=== PATIENT | male | born 1995 ===

== ENCOUNTER 2018-12-24 18:10 | Day surgery (SDC) | payer BC ==
[2018-12-24] MEDS ORDERED: FENTANYL PF 100MCG/2ML VIAL IV ONE (18:11)
[2018-12-24] MEDS ORDERED: CEFAZOLIN 1 Gram 1 GM/50 ML BAG IVPB ONE (18:11)
[2018-12-24] MEDS ORDERED: LIDOCAINE 2% MDV (20MG/ML) 20ML VIAL IV ONE (18:11)
[2018-12-24] MEDS ORDERED: ONDANSETRON HCL IV 4 MG/2 ML VIAL IVP ONE (18:11)
[2018-12-24] MEDS ORDERED: SEVOFLURANE 250 ML INH ONE (18:11)
[2018-12-24] MEDS ORDERED: MIDAZOLAM HCL 2MG/2ML VIAL IV ONE (18:11)
[2018-12-24] MEDS ORDERED: PROPOFOL 10 MG/ML VIAL IV ONE (18:11)
[2018-12-24] MEDS ORDERED: DEXAMETHASONE 4 MG/ML 1ML VIAL IVP ONE (18:11)
[2018-12-24] MEDS ORDERED: BUPIVACAINE 0.5% W/EPI MPF 30 ML VIAL SQ ONE (20:40)
[2018-12-24] MEDS ORDERED: MORPHINE SULFATE 10 MG/ML VIAL IVP PRN (21:47)
[2018-12-24] MEDS ORDERED: HYDROCODONE/APAP 5/325MG TABLET PO PRN ×2 (21:57→21:59)
--- NOTE | 2018-12-26 08:30 | Operative Note ---
DATE OF SURGERY: 12/24/2018 PREOPERATIVE DIAGNOSIS: Expanding hematoma, left breast. POSTOPERATIVE DIAGNOSIS: Expanding hematoma, left breast. OPERATION: I&D hematoma left breast. Surgeon: Samuel Macdonald MD Anesthesia: General. Estimated Blood Loss: 250 mL DRAINS: A 15 round Emmanuel. SPECIMENS: None. COMPLICATIONS: None. Indication: The patient is a very nice 23-year-old who had bilateral subcutaneous mastectomies earlier today. He called reporting feeling a pop, some heat, and increasing pain of his left chest and breast. He was evaluated in the office and at that point had a very tight large hematoma which was compromising nipple circulation. The hematoma was decompressed at the office by taking sutures out around the nipple areolar complex and relieving the pressure off the nipple. He is here for exploration and control of the hematoma. PROCEDURE: The patient was interviewed preoperatively where the plan was reviewed. He was then taken to the operating room to satisfactory general anesthesia. All pressure points well padded and protected. We prepped and draped in the usual sterile manner. We opened his previous incisions and drained a well-organized hematoma. We irrigated until there was no evidence of any residual hematoma or clot. Distal tip of the nipple pedicle was well vascularized. We thoroughly explored the wound. Found a couple small bleeding arteries in the upper axilla which were cauterized and ligated. Then observed the wound for about 10 minutes. When there was no active bleeding, we again irrigated, replaced the drain, and closed the incision using interrupted and subcutaneous 3-0 Monocryl. The nipple areolar with interrupted and subcutaneous 4-0 Monocryl. Sterile dressings were changed and placed on both breasts. Both nipples bleed and were viable postoperatively. He tolerated the procedure well without complication. SAQIB
== END 2018-12-25 00:05 | disposition home or self-care (01) ==
LOC: SUR 18:10 → MEDSURG 18:12 → SUR 12-25 00:05
PROVIDERS: ATTEND Plastic Surgery
DX: L76.32 Postprocedural hematoma of skin and subcutaneous tissue following other procedure (principal); N64.89 Other specified disorders of breast
CPT/HCPCS: 10140; 00400; J2405; J3010; J0690; J2270

== ENCOUNTER 2019-11-09 19:14 | Emergency (ER) | payer BC ==
[2019-11-09] MEDS ORDERED: KETOROLAC 30 MG/ML VIAL IVP ONE (19:25)
--- NOTE | 2019-11-09 19:29 | Emergency Department Record ---
History of Present Illness - General Chief Complaint: Chest Pain Stated Complaint: chest pain Time Seen by Provider: 11/09/19 19:17 Source: Patient Mode of Arrival: Ambulatory Limitations: No limitations - History of Present Illness Initial Comments: 24 yo male presents with chest pain that started two hours prior to arrival while at work. The patient states the pain is bilateral lower chest pain. The pain is sharp in nature. No cough. No shortness of breath. No leg pain or swelling. No fevers. It does hurt to cough. The patient has a surgical history of hysterectomy and bilateral mastectomies. No history of cardiac disease. No history of DVT or PE. MD Complaint: Chest pain -: Hour(s) (2) Onset: Other (During work) Pain Location: Left chest, Right chest Pain Radiation: None Severity: Moderate Quality: Sharp Consistency: Constant Improves With: Nothing Worsens With: Inspiration Context: Other Anginal Symptoms: Other Other Symptoms: Other Treatments Prior to Arrival: None - Related Data Home Medications Medication Instructions Recorded Confirmed Last Taken Fluoxetine HCl 20 mg PO ASDIR 11/09/19 11/09/19 11/09/19 Gabapentin [Neurontin] 100 mg PO BID 11/09/19 11/09/19 11/09/19 Oxcarbazepine [Oxtellar Xr] 600 mg PO BID 11/09/19 11/09/19 11/09/19 Testosterone Cypionate 100 mg IM WEEKLY 11/09/19 11/09/19 11/09/19 [Depo-Testosterone] Allergies Allergy/AdvReac Type Severity Reaction Status Date / Time aspartame AdvReac NAUSEA AND Verified 11/09/19 19:22 VOMITING Review of Systems Constitutional: Denies: Chills, Fever, Malaise, Weakness Eyes: Denies: Eye discharge ENT: Denies: Congestion, Throat pain Respiratory: Denies: Cough, Dyspnea, Hemoptysis, Stridor, Wheezes Cardiovascular: Reports: Chest pain. Denies: Dyspnea on exertion, Edema, Palpitations, Syncope Endocrine: Denies: Fatigue, Polydipsia, Polyuria Gastrointestinal: Denies: Abdominal pain, Diarrhea, Nausea, Vomiting Genitourinary: Denies: Dysuria, Frequency, Hematuria Musculoskeletal: Denies: Arthralgia, Back pain, Myalgia Skin: Denies: Bruising, Change in color, Rash Neurological: Denies: Headache Psychiatric: Denies: Anxiety Hematological/Lymphatic: Denies: Easy bleeding, Easy bruising Past Medical History - SOCIAL HISTORY Smoking Status: Never smoker - RESPIRATORY Hx Asthma: Yes (Seasonal Allergies) - CARDIOVASCULAR Hx Cardio Disorders: No - NEURO Hx Neuro Disorders: No - GI Hx GI Disorders: No - Hx Genitourinary Disorders: No - ENDOCRINE Hx Endocrine Disorders: No - MUSCULOSKELETAL Hx Musculoskeletal Disorders: No - PSYCH Hx Psych Problems: Yes Hx Anxiety: Yes Hx Depression: Yes - HEMATOLOGY/ONCOLOGY Hx Hematology/Oncology Disorders: No Family Medical History Hx Alcohol Use: Father, Mother Hx Cancer: Grandparents Hx Diabetes: Grandparents Physical Exam - General General Appearance: Alert, Oriented x3, Cooperative, No acute distress Limitations: No limitations - Head Head exam: Atraumatic, Normocephalic, Normal inspection - Eye Eye exam: Normal appearance, PERRL. negative: Conjunctival injection, Scleral icterus - ENT ENT exam: Normal exam Ear exam: Normal external inspection Nasal Exam: Normal inspection Mouth exam: Normal external inspection - Neck Neck exam: Normal inspection, Full ROM - Respiratory Respiratory exam: Normal lung sounds bilaterally. negative: Accessory muscle use, Chest wall tenderness, Decreased breath sounds, Prolonged expiratory, Respiratory distress, Rhonchi, Stridor, Wheezes - Cardiovascular Cardiovascular Exam: Regular rate, Normal rhythm, Normal heart sounds. negative: Diastolic murmur, Systolic murmur Peripheral Pulses: 2+: Radial (R), Radial (L) - GI/Abdominal GI/Abdominal exam: Soft. negative: Tenderness - Rectal Rectal exam: Deferred - exam: Deferred - Extremities Extremities exam: Normal inspection. negative: Calf tenderness, Pedal edema, Tenderness - Back Back exam: Denies: CVA tenderness (R), CVA tenderness (L) - Neurological Neurological exam: Alert, Oriented X3 - Psychiatric Psychiatric exam: Normal affect, Normal mood. negative: Agitated, Anxious - Skin Skin exam: Dry, Intact, Normal color, Warm Course - Reevaluation(s) Reevaluation #1: 11/09/19 19:26 EKG #1: 19:18 Rate: 79 Rhythm: normal [place]: normal Intervals: normal ST segments: normal Normal EKG 11/09/19 19:51 The CBC and BMP are normal 11/09/19 19:56 The D-Dimer is negative With a negative D-Dimer and normal vital signs I ordered a CXR. No indication for a CTA at this time. 11/09/19 20:33 The CXR is negative for acute process He is well appearing, no signs of acute cardio pulmonary event, infection, PTX, ACS, DVT or PE. DC home with supportive treatment with a recommendation for NSAID Medical Decision Making - Lab Data Result diagrams: 11/09/19 19:27 11/09/19 19:27 Disposition Disposition: Discharge Clinical Impression: Chest pain Qualifiers: Chest pain type: unspecified Qualified Code(s): R07.9 - Chest pain, unspecified Disposition: Home, Self-Care Condition: (1) Good Instructions: Chest Pain (ED) Additional Instructions: Review this ER visit and the tests performed with your family doctor Call your doctor for the next available follow up appointment Return to the ER for a recheck immediately if worse, any new concerns or questions Forms: Patient Portal Access Time of Disposition: 20:34 Quality - Quality Measures Quality Measures: N/A - Blood Pressure Screening Does Patient Have Any of the Following: No Blood Pressure Classification: Normal BP Reading Systolic Measurement: 102 Diastolic Measurement: 59 Screening for High Blood Pressure: < Normal BP, F/U Not Required > [[id number]]
[2019-11-09 19:35] LABS: BASO % 0.9 % (0-6); EOS % 9.1 % (0-6); GRAN % 47.1 % (47-80); HEMATOCRIT 46.3 % (42.0-52.0); HEMOGLOBIN 15.6 gm/dl (14.0-18.0); LYMPH % 36.4 % (16-45); MEAN CELL VOLUME 92.2 fl (81-97); MEAN CORPUSCULAR HEMOGLOBIN 31.1 pg (27-33); MEAN CORPUSCULAR HGB CONC 33.7 g/dl (32-36); MEAN PLATELET VOLUME 9.7 fl (7.4-10.4); MONO % 6.5 % (0-9); PLATELET COUNT 260 K/uL (130-400); RED BLOOD COUNT 5.02 M/uL (4.40-5.70); RED CELL DISTRIBUTION WIDTH 11.7 % (11.5-14.5); WHITE BLOOD COUNT W/O DIFF 6.6 K/uL (4.2-12.2)
[2019-11-09 19:44] LABS: BLOOD UREA NITROGEN 11 mg/dL (6-20); CREATININE 0.9 mg/dL (0.7-1.2); EST GLOMERULAR FILTRATION RATE > 60 mL/min
[2019-11-09 19:47] LABS: GLUCOSE,RANDOM 74 mg/dL (74-109)
--- NOTE | 2019-11-09 20:23 | RADIOLOGY REPORT ---
EXAMINATION: Two View Chest Radiographs EXAM DATE: 11/09/2019 8:17 PM TECHNIQUE: Frontal and lateral views INDICATION: chest pain COMPARISON: None ENCOUNTER: Not applicable FINDINGS: The heart, mediastinum, and pulmonary vasculature are normal. No lung consolidation or pleural effu sions are present. IMPRESSION: No acute abnormality Dictated by: Jesus Perez MD on 11/09/2019 8:19 PM. .
== END 2019-11-09 20:48 | disposition home or self-care (01) ==
LOC: ER 19:14
DX: R07.89 Other chest pain (principal)
CPT/HCPCS: 99284 ×2; 96374; 85025; 80048; 85379; 71046; 93005; J1885; 93010